=== PATIENT | female | born 1940 | race Caucasian/White ===

== ENCOUNTER 2022-11-15 09:31 | Outpatient (CLI) | payer MEDICARE ==
[2022-11-15 11:39] LABS: #Basophils 0.1 10x3/uL (0.0-0.2); #Eosinphils 0.1 10x3/uL (0.0-0.5); #Monocytes 0.4 10x3/uL (0.0-1.1); #Neutrophils 4.6 10x3/uL (1.5-8.4); %Basophils 1.1 % (0.0-2.0); %Eosinophils 2.2 % (0.0-6.0); %Lymphocytes 17.3 % (18.0-47.0); %Monocytes 6.6 % (0.0-10.0); %Neutrophils 72.6 % (40.0-75.0); Hemoglobin 15.4 g/dL (12.0-15.5); Mean Corpuscular HGB CONC 32.6 g/dL (32.0-36.0); Mean Corpuscular Hemoglobin 29.1 pg (27.0-33.0); Mean Corpuscular Volume 89.2 fl (81.6-98.3); Mean Platelet Volume 10.2 fl (7.4-10.4); Platelet Count 378 10x3/uL (150-450); RBC Distribution Width 13.2 % (11.5-14.5); Red Blood Cell (RBC) Count 5.29 10x6/uL (3.90-5.03); White Blood Cell (WBC) Count 6.4 10x3/uL (3.5-10.5)
[2022-11-15 11:48] LABS: INR-International Normal Ratio 0.9; Prothrombin Time 10.2 sec (9.5-12.1)
[2022-11-15 12:02] LABS: Anion Gap 13 mmol/L (10-20); BUN (Urea Nitrogen) 13 mg/dL (9.8-20.1); Calc. Creatinine Clearance 0 mL/min (70-130); Calcium 9.5 mg/dL (7.8-10.44); Carbon Dioxide 28 mmol/L (23-31); Chloride 103 mmol/L (98-107); Estimated GFR 80; Glucose 104 mg/dL (83-110); Potassium 4.2 mmol/L (3.5-5.1); Sodium 140 mmol/L (136-145)
== END 2022-11-15 09:32 | disposition home or self-care (01) ==
LOC: LABBT 09:31
PROVIDERS: ATTEND Orthopaedic Surgery
DX: Z01.818 Encounter for other preprocedural examination (principal); M17.12 Unilateral primary osteoarthritis, left knee
CPT/HCPCS: 80048; 85025; 85610; 87081; 93005; 93010

== ENCOUNTER 2022-11-18 06:35 | Inpatient (IN) | payer MEDICARE ==
[2022-11-14 15:52] VITALS: BMI 24.8
[2022-11-18] MEDS ORDERED: FENTANYL 50 MCG/ML 1 ML VIAL ONE ×2 (07:57→11:38)
[2022-11-18] MEDS ORDERED: Midazolam HCl 2 mg/2 ml Vial ONE (07:57)
[2022-11-18] MEDS ORDERED: Bupivacaine PF 0.5% 30 ML VIAL ONE ×2 (07:58→08:48)
[2022-11-18] MEDS ORDERED: Sodium Chloride 0.9% 100 ML ONE (08:24)
[2022-11-18] MEDS ORDERED: Levofloxacin 500 mg/D5W 100 ml Premix Bag ONE (08:24)
[2022-11-18] MEDS ORDERED: Tranexamic Acid 1,000 MG/10 ML VIAL ONE (08:24)
[2022-11-18] MEDS ORDERED: Vancomycin 1 GM/200 ML (FROZEN) BAG ONE (08:25)
[2022-11-18] MEDS ORDERED: PROPOFOL 200 MG/20 ML VIAL ONE (08:26)
[2022-11-18] MEDS ORDERED: Ondansetron PF 4 MG/2 ML Vial ONE (08:26)
[2022-11-18] MEDS ORDERED: Dexamethasone 20 MG/5 ML VIAL ONE (08:26)
[2022-11-18] MEDS ORDERED: ePHEDrine 50 MG/ML VIAL ONE (08:26)
[2022-11-18] MEDS ORDERED: Lidocaine 1% PF 5 ML VIAL ONE (08:26)
[2022-11-18] MEDS ORDERED: Bupivacaine HCl 0.5%/Epinephrine 1:200,000/PF 30 ml Vial ONE (08:26)
[2022-11-18 08:37] LABS: SARS-CoV-2 NAA Rapid Test Not Detected (NotDetected)
[2022-11-18] MEDS ORDERED: Fentanyl 100 MCG/2 ML VIAL IV PRN (08:55)
[2022-11-18] MEDS ORDERED: oxyCODONE 5 MG TAB PO PRN (08:56)
[2022-11-18] MEDS ORDERED: fentaNYL PF 100 MCG/2 ML SYRINGE ONE (08:57)
[2022-11-18] MEDS ORDERED: Zolpidem Tartrate 5 MG TAB PO PRN ×2 (09:00→09:17)
[2022-11-18] MEDS ORDERED: Ropivacaine 0.2% 550 ML 550 ML NERVE BLCK SCH (09:00)
[2022-11-18] MEDS ORDERED: Promethazine HCl 25 MG/ML VIAL IM PRN ×2 (09:00→09:17)
[2022-11-18] MEDS ORDERED: traMADol HCl 50 MG TAB PO PRN (09:00)
[2022-11-18] MEDS ORDERED: diphenhydrAMINE 25 MG CAP PO PRN (09:17)
[2022-11-18] MEDS ORDERED: Ondansetron PF 4 MG/2 ML Vial IVP PRN (09:17)
[2022-11-18] MEDS ORDERED: Acetaminophen 325 MG TAB PO PRN ×2 (09:17→10:27)
[2022-11-18] MEDS ORDERED: CEFAZOLIN 1 GM VIAL ONE (09:32)
[2022-11-18] MEDS ORDERED: HYDROmorphone 2 MG/ML VIAL ONE (09:38)
[2022-11-18] MEDS ORDERED: Ondansetron HCl/PF 4 MG/2 ML Vial IVP PRN (09:42)
[2022-11-18] MEDS: CEFAZOLIN 2 GM in Sodium Chloride 0.9% 100 ML IVPB SCH (16:29)
[2022-11-18] MEDS: oxyCODONE 5 MG TAB PO PRN ×2 (16:29→20:33)
[2022-11-18] MEDS: Ondansetron PF 4 MG/2 ML Vial IVP PRN ×2 (16:36→22:31)
[2022-11-18] MEDS: Sodium Chloride 0.9% 1,000 ML IV SCH ×2 (18:42→20:11)
[2022-11-18] MEDS: Ferrous Gluconate 324 MG TAB PO SCH (20:31)
[2022-11-18] MEDS: Senokot S 8.6-50 MG TAB PO SCH (20:32)
[2022-11-18] MEDS: Amlodipine 5 MG TAB PO SCH (20:34)
[2022-11-18] MEDS: Atorvastatin Calcium 10 MG TAB PO SCH (20:34)
[2022-11-18] MEDS ORDERED: Aspirin 81 mg Enteric Coated Tablet PO SCH ×2 (21:00)
[2022-11-19] MEDS: CEFAZOLIN 2 GM in Sodium Chloride 0.9% 100 ML IVPB SCH (02:22)
[2022-11-19] MEDS: Sodium Chloride 0.9% 1,000 ML IV SCH ×3 (07:16→23:43)
[2022-11-19 07:17] LABS: Hemoglobin 13.5 g/dL (12.0-16.0); Mean Corpuscular HGB CONC 33.1 g/dL (32.0-36.0); Mean Corpuscular Hemoglobin 30.4 pg (27.0-31.0); Mean Corpuscular Volume 91.8 fl (78.0-98.0); Mean Platelet Volume 7.5 fL (7.4-10.4); Platelet Count 308 10x3/uL (130-400); RBC Distribution Width 11.9 % (11.5-14.5); Red Blood Cell (RBC) Count 4.44 mill/uL (4.20-5.40); White Blood Cell (WBC) Count 13.8 10x3/uL (4.8-10.8)
[2022-11-19] MEDS: Ondansetron PF 4 MG/2 ML Vial IVP PRN ×2 (07:25→13:20)
[2022-11-19] MEDS: traMADol HCl 50 MG TAB PO PRN ×3 (08:09→22:17)
[2022-11-19] MEDS: Multivitamin W/ Minerals 1 TAB PO SCH (08:10)
[2022-11-19] MEDS: Ferrous Gluconate 324 MG TAB PO SCH ×2 (08:10→21:27)
[2022-11-19] MEDS: Senokot S 8.6-50 MG TAB PO SCH ×2 (08:10→21:26)
[2022-11-19] MEDS ORDERED: FENTANYL 50 MCG/ML 1 ML VIAL SLOW IVP PRN (14:17)
[2022-11-19] MEDS: Amlodipine 5 MG TAB PO SCH (21:26)
[2022-11-19] MEDS: Atorvastatin Calcium 10 MG TAB PO SCH (21:27)
[2022-11-20 06:33] LABS: Hemoglobin 12.8 g/dL (12.0-16.0); Mean Corpuscular HGB CONC 33.7 g/dL (32.0-36.0); Mean Corpuscular Hemoglobin 30.9 pg (27.0-31.0); Mean Corpuscular Volume 91.8 fl (78.0-98.0); Mean Platelet Volume 7.2 fL (7.4-10.4); Platelet Count 295 10x3/uL (130-400); RBC Distribution Width 12.1 % (11.5-14.5); Red Blood Cell (RBC) Count 4.15 mill/uL (4.20-5.40); White Blood Cell (WBC) Count 11.6 10x3/uL (4.8-10.8)
[2022-11-20] MEDS: Ferrous Gluconate 324 MG TAB PO SCH (08:25)
[2022-11-20] MEDS: Multivitamin W/ Minerals 1 TAB PO SCH (08:25)
[2022-11-20] MEDS: Senokot S 8.6-50 MG TAB PO SCH (08:25)
[2022-11-20] MEDS: traMADol HCl 50 MG TAB PO PRN (08:26)
[2022-11-20] MEDS ORDERED: Ondansetron ODT 4 MG TAB PO PRN (09:39)
[2022-11-20] MEDS: Sodium Chloride 0.9% 1,000 ML IV SCH (10:33)
[2022-11-20 12:09] VITALS: BP 153/67; TEMP 97.9
== END 2022-11-20 12:45 | disposition home or self-care (01) | DRG 470 ==
LOC: SDC 06:35 → SURG A 12:16 → SDC 12:18 → SURG A 12:18 → SURG B 16:08 → OBSVTOIN 11-20 10:49
PROVIDERS: ADMIT Orthopaedic Surgery; ATTEND Orthopaedic Surgery
PROC: 0SRD0J9 Replacement of Left Knee Joint with Synthetic Substitute, Cemented, Open Approach (ICD-10-PCS; principal; 2022-11-18)
DX: M17.12 Unilateral primary osteoarthritis, left knee (principal); Z20.822 Contact with and (suspected) exposure to COVID-19; I10 Essential (primary) hypertension; E78.5 Hyperlipidemia, unspecified; Z79.899 Other long term (current) drug therapy
CPT/HCPCS: 36415; 85027; 96365; 96372; 96375; 96376; A4306; C1713; C1776; G0378; J0690; J1100; J1170; J1650; J1956; J2250; J2405; J2704; J2795; J3010; J3370-JW; J3490; S0020; U0002

== ENCOUNTER 2025-08-02 12:49 | Outpatient (CLI) | payer MEDICARE, OTHER | END 2025-08-02 12:50 | disposition home or self-care (01) | LOC: SCSBT 12:49 | PROVIDERS: ATTEND Family Medicine | DX: Z13.820 Encounter for screening for osteoporosis (principal); Z78.0 Asymptomatic menopausal state; M81.0 Age-related osteoporosis without current pathological fracture; M85.88 Other specified disorders of bone density and structure, other site | CPT/HCPCS: 77080 ==